=== PATIENT | male | born 1995 | race Two or more races ===

== ENCOUNTER 2017-12-15 19:05 | Emergency (ER) | payer BC ==
[~2017-12-15] VITALS: Ht 182.9 cm; Wt 85.7 kg
[2017-12-15 19:26] VITALS: BP 129/82
[2017-12-15] MEDS ORDERED: BACITRACIN TOP OINT 1 UD PKG TOP ONE (20:45)
== END 2017-12-15 21:58 | disposition home or self-care (01) ==
LOC: ER 19:05 → EDBD 19:05 → ER 21:58
DX: S93.402A Sprain of unspecified ligament of left ankle, initial encounter (principal); X58.XXXA Exposure to other specified factors, initial encounter; Y93.67 Activity, basketball; Y99.8 Other external cause status; Y92.89 Other specified places as the place of occurrence of the external cause
CPT/HCPCS: 73610